=== PATIENT | male | born 1955 | race African-American/Black ===

== ENCOUNTER 2019-04-05 14:18 | Emergency (ER) | payer MEDICARE, MEDICAID ==
[~2019-04-05] VITALS: Ht 185.4 cm; Wt 108.9 kg
[2019-04-05 14:40] VITALS: BP 185/111
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
[2019-04-05] MEDS ORDERED: IBUPROFEN600 MG ORAL (16:12)
[2019-04-05 16:55] VITALS: BP 156/92
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
== END 2019-04-05 16:55 | disposition home or self-care (01) ==
LOC: EMR 15:20
DX: M54.5 Low back pain (principal); M54.2 Cervicalgia; V43.52XA Car driver injured in collision with other type car in traffic accident, initial encounter; Y92.9 Unspecified place or not applicable; I10 Essential (primary) hypertension
CPT/HCPCS: 72020; 72040; 99284